=== PATIENT | female | born 1970 | race Caucasian/White ===

== ENCOUNTER 2021-06-29 15:50 | Emergency (ER) | payer OTHER, MEDICAID, SELFPAY ==
[2021-06-29 15:52] VITALS: BP 165/108; PULSE 101; RESP 18; TEMP 36; O2SAT 98; BMI 39.0
--- NOTE | 2021-06-29 16:12 | EDS_ITS ---
HPI History of Present Illness Chief Complaint: Upper Extremity Injury Informant: patient Occured/Mechanism Mechanism/Context: Yes fall Onset/Context/Timing Onset: Today Current Severity: Moderate Maximum Severity: Moderate Narrative Narrative: Patient presents with left shoulder injury after a fall. She states she tripped and put her hands out in front of her to cut herself. She believes she dislocated her left shoulder. She is right-hand dominant. She denies any other injury. [facility] Medical History Depression Hypertension Marfans syndrome Allergy/AdvReac Type Severity Reaction Status Date / Time No Known Allergies Allergy Verified 06/29/21 15:52 Surgical History Hx of cataract surgery Hx of hysterectomy Social History Smoking Status: Never smoker ROS ROS ED Constitutional Constitutional ED: Denies chills or fever(s) Eyes Eyes: Denies change in vision ENT ENT ED: Denies sore throat Cardiovascular Cardiovascular: Denies chest pain Respiratory/Chest Respiratory/Chest: Denies cough or dyspnea Gastrointestinal Gastrointestinal: Denies abdominal pain, diarrhea, nausea or vomiting Genitourinary Genitourinary ED: Denies dysuria Musculoskeletal Musculoskeletal: Reports other Details: Left shoulder pain ; Denies back pain Integumentary Denies rash Neurologic Neurologic: Denies headache(s) or weakness Allergic/Immunologic Allergic/Immunologic ED: Denies urticaria EXAM Physical Exam Const Vital Signs: 06/29/21 15:52 Temperature 96.8 F L Temperature Source Temporal Pulse Rate 101 H Respiratory Rate 18 Blood Pressure 165/108 H Blood Pressure Mean 127 Pulse Ox 98 Oxygen Delivery Method Room Air Positive well nourished and well developed General Appearance ED: well developed Eyes PERRL and EOMs intact bilaterally Neck supple Chest Wall inspection of chest normal and palpation of chest normal Resp normal respiratory effort and clear to auscultation bilaterally Cardio regular rate and regular rhythm GI non-tender Palpation: soft Extremity Extremity Narrative: Mild deformity to the left shoulder. Strong distal pulses and can wiggle fingers. Good cap refill. Neuro oriented x3 Sensorium / Orientation: alert Psych mental status grossly normal Skin Rashes: no rashes MDM MDM MDM Narrative Medical decision making narrative: Patient declined anything for pain stating that she is already on Vicodin regularly. Left shoulder x-rays obtained. Treatment and Re-Evaluation Comments:: Left shoulder x-ray per my interpretation reveals a proximal humerus fracture with no evidence of dislocation. X-rays reviewed with patient and family at bedside. She be placed in a sling and swath. She will continue Vicodin at home for pain. She is referred to orthopedics for follow-up. Discharge Plan Triage Chief Complaint: Upper Extremity Injury ED Provider: Manisha Saha Dx/Rx/DC Orders Clinical Impression: Closed left humeral fracture Instructions: Understanding a Humerus Fracture Referrals: Adin Wilks [Other] Huber Lowery DO [STAFF PHYSICIAN] - 5-7 Days Disposition Disposition: Home, Self Care
--- NOTE | 2021-06-29 16:30 | RAD_ITS ---
STUDY: X-RAY - LEFT SHOULDER REASON FOR EXAM: Female, 51 years old. injury TECHNIQUE: 2 view(s) of the shoulder. COMPARISON: None. FINDINGS: An acute mildly comminuted, predominantly transverse fracture is present across the left humeral neck and greater tuberosity with mild displacement of the major fracture fragments. Normal acromioclavicular joint. Normal acromion. The soft tissue structures are unremarkable. Normal visualized pulmonary apex. RAD/Shoulder min 2 Views IMPRESSION: 1. Acute mildly comminuted fracture of the left humeral neck/greater tuberosity Electronically Signed: Norris Sy MD at 17:21 EST , Service support ,
[2021-06-29 18:06] VITALS: BP 158/78; PULSE 98; RESP 12; O2SAT 98
== END 2021-06-29 18:07 | disposition home or self-care (01) ==
PROVIDERS: Emergency Provider Emergency Medicine
DX: S42.252A Displaced fracture of greater tuberosity of left humerus, initial encounter for closed fracture (principal); S42.292A Other displaced fracture of upper end of left humerus, initial encounter for closed fracture; W01.0XXA Fall on same level from slipping, tripping and stumbling without subsequent striking against object, initial encounter; Y93.9 Activity, unspecified; Y92.9 Unspecified place or not applicable; Y99.9 Unspecified external cause status
CPT/HCPCS: 73030; 99283